=== PATIENT | male | born 1995 ===

== ENCOUNTER 2016-10-18 19:04 | Emergency (ER) | payer OTHER ==
[2016-10-18] MEDS ORDERED: CEPHALEXIN 500 MG CAPSULE ONE (23:35)
[2016-10-18] MEDS ORDERED: IBUPROFEN 800 MG TABLET ONE (23:35)
[2016-10-18] MEDS ORDERED: HYDROCODONE/ACETAMINOPHEN 5/325MG TABLET ONE (23:35)
--- NOTE | 2016-10-19 06:24 | RAD ---
HAND-RIGHT 3 VIEWS COMPARISON: None HISTORY: Male punctured the palm of right hand today. Right hand pain and swelling. Point of entry marked with an arrow. FINDINGS: Views: Right hand PA, oblique, lateral Bones: Normal Joints: Normal Soft tissues: No metallic foreign body. No subcutaneous emphysema. Swelling at the web space between the thumb and the second metacarpal. IMPRESSION: Soft tissue swelling at the web space between the thumb and the second metacarpal.
== END 2016-10-18 23:59 | disposition home or self-care (01) ==
LOC: ED 19:04
DX: S61.431A Puncture wound without foreign body of right hand, initial encounter (principal); W45.0XXA Nail entering through skin, initial encounter
CPT/HCPCS: 73130; 99283 ×2; A9270 ×3